=== PATIENT | male | born 1980 | race Caucasian/White ===

== ENCOUNTER 2018-11-22 10:36 | Emergency (ER) | payer MEDICAID ==
[~2018-11-22] VITALS: Ht 167.6 cm; Wt 77.1 kg
[2018-11-22 10:39] VITALS: BP 131/82; PULSE 85; RESP 20; Ht 167.6 cm; Wt 77.1 kg
--- NOTE | 2018-11-22 10:55 | ERD ---
ER Documentation Chief Complaint Chief Complaint right eye redness/pain ( foreign object) HPI Patient is a 37 years old male with no known PMHx presenting to the clinic for sensation of foreign body in right eye since today morning. Patient reports of right eye itching and redness without discharge or edema. Patient admits to working as a [employer] and believes something went inside while at work yesterday. Patient admits to flushing right eye with water without resolution. Patient denies visual impairment. ROS All systems reviewed and are negative except as per history of present illness. Medications Home Meds Active Scripts Carboxymethylcellulose Sodium* (Refresh Tears*) 15 Ml Drops, 2 DROP RIGHT EYE QID for 5 Days, EA Prov:JAIDA POWERS PA-C 11/22/18 Allergies Allergies: Coded Allergies: No Known Allergy (Unverified , 11/22/18) PMhx/Soc Medical and Surgical Hx: pt denies Medical Hx, pt denies Surgical Hx History of Surgery: No Anesthesia Reaction: No Hx Neurological Disorder: No Hx Respiratory Disorders: No Hx Cardiac Disorders: No Hx Psychiatric Problems: No Hx Miscellaneous Medical Probl: No Hx Alcohol Use: No Hx Substance Use: No Hx Tobacco Use: No Smoking Status: Never smoker FmHx Family History: No diabetes, No coronary disease, No other Physical Exam Vitals Vital Signs Date Temp Pulse Resp B/P (MAP) Pulse Ox O2 O2 Flow FiO2 Time Delivery Rate 11/22/18 98.2 85 20 131/82 97 10:39 (98) Physical Exam Const: No acute distress Head: Atraumatic Eyes: Right conjunctiva erythematous with single hair (most likely eye lash) located on lateral side. ENT: Normal External Ears, Nose and Mouth. Neck: Full range of motion. No meningismus. Resp: Clear to auscultation bilaterally Cardio: Regular rate and rhythm, no murmurs Neur: Awake and alert Psych: Normal Mood and Affect Procedures/MDM Patient was seen and evaluated for right eye discomfort. Provider used sterile swab and removed hair strand from right eye. Patient reports immediate relief post foreign body extraction. Patient is stable and ready for discharge. F/U with PCP. No further workup required. Departure Diagnosis: Primary Impression: Retained foreign body Condition: Stable Patient Instructions: Foreign Object in the [place] Referrals: [facility] Additional Instructions: Paciente aconseja volver a Departamento de urgencias inmediatamente para sntomas nuevos o que empeoran . Paciente aconseja posteriores con el PCP en 2-3 jimenez . Paciente verbaliza la comprehensin y est de acuerdo con el tratamiento y el curso de accin. Si el paciente no tiene ninguna de atencin primaria pueden seguir con [facility] [id number] [place] [address] o [facility] + [address] [address] JAIDA POWERS PA-C Nov 22, 2018 10:55
[2018-11-22] MEDS ORDERED: CARB15DR3 RIGHT EYE (10:57)
== END 2018-11-22 11:11 | disposition home or self-care (01) ==
LOC: FTE 10:36
DX: T15.11XA Foreign body in conjunctival sac, right eye, initial encounter (principal); X58.XXXA Exposure to other specified factors, initial encounter; Y92.9 Unspecified place or not applicable
CPT/HCPCS: 99282